=== PATIENT | female | born 1970 | race African-American/Black ===

== ENCOUNTER → 2021-12-11 02:48 | Outpatient (CLI) | payer OTHER, SELFPAY ==
[2021-12-11 12:40] LABS: SARS-CoV-2 RNA PCR Negative
== END ==
PROVIDERS: PCP Family Medicine; Visit Provider Family Medicine
DX: Z20.822 Contact with and (suspected) exposure to COVID-19 (principal)
CPT/HCPCS: C9803; U0003; U0005

== ENCOUNTER 2024-02-15 08:34 | Emergency (ER) | payer OTHER, SELFPAY ==
--- NOTE | ~2024-02-15 | US_ITS ---
EXAMINATION: US venous doppler UE LT DATE: 02/15/2024 09:43 INDICATION: Left upper limb swelling and pain. TECHNIQUE: Grayscale ultrasound images without and with compression and Doppler ultrasound images of the left upper extremity veins were obtained. COMPARISON: None. FINDINGS: The visualized portions of the left internal jugular vein, subclavian vein, axillary vein, brachial v eins, basilic vein, cephalic vein, radial vein, and ulnar vein are patent. IMPRESSION: 1. No deep venous thrombosis. Reviewed, dictated and finalized at location A.
--- NOTE | ~2024-02-15 | XR_ITS ---
EXAMINATION: XR wrist LT min 3V DATE: 02/15/2024 09:11 INDICATION: Left wrist pain and swelling. TECHNIQUE: 4 views of left wrist were obtained. COMPARISON: None. FINDINGS: Bone alignment is normal. No fracture. There is mild osteoarthritis of first carpometacarpa l joint. IMPRESSION: 1. Mild osteoarthritis of first carpometacarpal joint. Reviewed, dictated and finalized at location A.
[2024-02-15 08:36] VITALS: BP 162/99; PULSE 107; RESP 16; TEMP 36.5; O2SAT 100
[2024-02-15] MEDS: KETOROLAC 30 MG/ML VIAL (*BKC) IV PUSH (09:15)
[2024-02-15 09:21] LABS: Basophils Percent Auto 0.2 % (0.2-1.2); Eosinophils Absolute Auto 0.2 K/mm3 (0-0.3); Eosinophils Percent Auto 2.6 % (0-4.4); Hematocrit 42.4 % (37.0-47.0); Hemoglobin 13.6 g/dL (12.0-15.0); Immature Granulocyte Absolute 0.01 K/mm3 (0.00-0.031); Immature Granulocyte Percent A 0.1 % (0-0.5); Lymphocytes Absolute Auto 1.35 K/mm3 (0.9-3.2); Lymphocytes Percent Auto 16.7 % (18.3-44.2); Mean Corpuscular HGB Conc 32.1 g/dl (32-36); Mean Corpuscular Volume 87.2 fl (80-100); Mean Platelet Volume 10.1 fl (7.4-10.4); Monocytes Absolute Auto 0.5 K/mm3 (0.1-0.6); Monocytes Percent Auto 6.1 % (2.6-8.5); Neutrophils Percent Auto 74.3 % (45.5-73.1); Platelet Count Result 267 k/mm3 (150-375); Red Blood Count 4.86 M/mm3 (4.2-5.4); Red Cell Distribution Width 12.4 % (11.5-14.5); White Blood Count 8.1 K/mm3 (4.5-10.0)
[2024-02-15 09:34] LABS: Alanine Aminotransferase 46 U/L (6-35); Albumin Level 4.6 g/dL (3.5-5.1); Alkaline Phosphatase 108 U/L (38-126); Anion Gap 8 mmol/L (4-12); Aspartate Amino Transferase 36 U/L (14-36); Bilirubin,Total 0.7 mg/dL (0.2-1.3); Blood Urea Nitrogen 9 mg/dL (7-17); CRP 5.7 mg/dL (<1.0); Calcium 9.1 mg/dL (8.4-10.2); Carbon Dioxide 27 mmol/L (22-30); Chloride 106 mmol/L (98-107); Estimated CRCL calculation 62 ml/min; Estimated Glomerular Filt Rate > 60; Glucose 123 mg/dL (65-110); Potassium 3.6 mmol/L (3.4-5.0); Sodium 141 mmol/L (137-145)
[2024-02-15 09:43] LABS: INR 1.1; Prothrombin Time 14.6 Seconds (11.1-14.7)
[2024-02-15 09:44] LABS: Partial Thromboplastin Time 39.7 Seconds (22.3-36.8)
[2024-02-15 09:47] LABS: Erythrocyte Sedimentation Rate 101 mm/hr (0-20)
--- NOTE | 2024-02-15 10:11 | ED.UPPEXIN ---
HPI - Extremity Injury (Upper) General Chief Complaint: Extremity Injury, Upper Stated Complaint: L hand swelling Time Seen by Provider: 02/15/24 08:50 History of Present Illness HPI narrative: Patient is a 43-year-old female who presents ER with swelling to her left hand and forearm. Ongoing over last 5 days. Irregularly it is warm. She maintains full range of motion. No numbness or tingling. No fevers or chills or sweats. 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 She does report on her right arm she scraped it on a dumpster and she has a couple pustules in the area but is not cellulitic. She has a small laceration healing by secondary intention. No history of RA/lupus/gout. Last tetanus shot was in 2011. Related Data Home Medications Medication Instructions Recorded Confirmed levonorgestrel 21 mcg/24 hr (up to 1 device intrauterine ONCE 01/11/22 01/23/24 8 years) 52 mg intrauterine device (Mirena) multivitamin 1 tablet PO DAILY 11/19/22 01/23/24 lactase 3,000 unit tablet (Lactaid) 3,000 unit PO ONCE 01/17/23 01/23/24 Allergies Allergy/AdvReac Type Severity Reaction Status Date / Time lactose Allergy Unknown Diarrhea Verified 02/15/24 08:39 CITRUS Allergy Mild RASH Uncoded 02/15/24 08:39 Review of Systems Constitutional: Constitutional: Reports no additional constitutional complaints Cardiovascular: Cardiovascular: Reports no additional cardiovascular complaints Respiratory: Respiratory: Reports no additional respiratory complaints Musculoskeletal: Musculoskeletal: Denies arthralgias, Reports joint swelling and Denies muscle cramps Neurologic: Reports system reviewed and no additional complaints, except as documented [facility] Past Medical History Medical History Eczema Screening mammogram, encounter for Surgical History Surgical History History of gynecological procedure (03/28/20) Mirena IUD insertion History of gynecological procedure 2014 mirena iud insertion History of gynecological procedure Suction D&C Missed AB 2003 Family History Family History Grandparent Diabetes mellitus paternal grandmother Breast cancer paternal grandmother Cerebrovascular accident paternal grandfather Mother Hypertension Breast cancer Diabetes mellitus Dementia Other Alcoholism Hypertension Father Asthma Diabetes mellitus Other Diabetes mellitus Hypertension Social History Social History (Updated 01/23/24 @ 15:32 by Rosalinda Chow [facility]) Smoking status: Never smoker Second hand tobacco smoke exposure: No Alcohol intake: never Substance use: never Substance use type: does not use Do You Feel Safe in your Home?: Yes Lack of Transportation: No Lack of Food: Never True Current Housing: I Have Housing Concerned About Future Housing: No Difficulty Paying Gas/Electric Bills: No Difficulty Paying for Meds: No Currently Unemployed: No Education: Bachelor's Degree Difficulty w/ Childcare or Family Care: No Living arrangements: other Additional living arrangements comments: Occupation/Education: occupation 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 HEAD: Normocephalic, atraumatic. ENT: Mucous membranes moist. CHEST: Clear to auscultation. No respiratory distress. HEART: Regular rate and rhythm. Normal peripheral pulses. ABDOMEN: Soft, nontender, nondistended. EXTREMITIES: Left hand and distal forearm swollen. Increased discomfo
[2024-02-15] MEDS: TETANUS,DIPHTHERIA,AC PERTUSSIS ADULT (0.5 ML) BOOSTRIX IM (10:50)
[2024-02-15 11:07] VITALS: BP 147/91; PULSE 77; RESP 16; O2SAT 100
== END 2024-02-15 11:09 | disposition home or self-care (01) ==
PROVIDERS: Emergency Provider Emergency Medicine
DX: L30.9 Dermatitis, unspecified (principal); G56.02 Carpal tunnel syndrome, left upper limb; M19.042 Primary osteoarthritis, left hand; L73.9 Follicular disorder, unspecified; Z23 Encounter for immunization
CPT/HCPCS: 36415; 73110; 80053; 85025; 85610; 85652; 85730; 86140; 90471; 90715; 93971; 96374; 99284; J1885

== ENCOUNTER 2024-11-06 15:00 | Outpatient (RCR) | payer OTHER, SELFPAY ==
--- NOTE | 2024-08-21 16:17 | OTOPEVAL1 ---
Assessment and note entered by Bobo Mccormick, OTR/L, CHT OT Evaluation Information Assessment Status Evaluation Diagnosis (L) de Quervain's Subjective Information Patient began experiencing pain in the left wrist/ hand in February. She reports the hand swelled and she went to the ED and was diagnosed with tendonitis. She wore a wrist immobilizer from February-Jun with minimal relief. Her PCP recommended a wrist immobilizer that includes the thumb and she has been wearing this since Jun. She reports she can experience 10/10 pain when lifting items, like her purse. She states she has difficulties with everyday tasks and tends to avoid heavy lifting, such as pots and pans. It takes all I have not to drop heavy items . 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 Reported Pain Level Pain Score 5: Self Report Assessment OT Clinical Summary Patient referred to OT with dx of left de Quervain 's tenosynovitis. She presents with a positive Alysia's, pain with wrist and thumb motion, and gross weakness that limits her ability to use her left hand during ADLs and household tasks. Skilled OT indicated to maximize functional use of left hand/wrist via HEP instruction and progression, modalities, manual therapy, and progressive therapeutic exercise. Plan of Care Interventions Therapeutic Exercise,Manual Therapy,Therapeutic Activities,Hot Pack/Cold Pack,Ultrasound,Paraffin OT Services Indicated Yes Treatment Frequency and 2x/week for 8 visits Duration These treatments will address the objective and functional deficits as defined above. The patient will be advanced safely and appropriately in order for the patient to progress towards his/her prior level of function. Additional exercises will be introduced and as well as a comprehensive home exercise program upon discharge, if needed, ?to ensure carryover of functional gains achieved in the clinic. This treatment plan has been reviewed and agreement upon by the patient.
--- NOTE | 2024-08-21 16:17 | OPREHPOC ---
Outpatient Therapy Plan of Care This is a Multidisciplinary Plan of Care that may contain components documented by all disciplines (PT, OT, and ST.) OT Problem 1 OT Problem #1 Knowledge Deficit OT Goal 1 Goal / Goal Update 1. Patient to be independent with instructed materials. Target Visit 8 OT Problem 2 OT Problem #2 Pain OT Goal 1 Goal / Goal Update 1. Patient to report reduced left wrist pain to 3/ 10 or less with ADLs, lifting her purse, and cooking. Target Visit 8 OT Problem 3 OT Problem #3 Impaired Strength OT Goal 1 Goal / Goal Update 1. Patient to progress to left wrist strengthening with 2 lb. free weights x15 reps. 2. 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 Target Visit 8
--- NOTE | 2024-09-27 15:57 | OTOPPROG ---
Assessment and note entered by Bobo Mccormick, OTR/L, CHT OT Progress Report 09/27/24 Diagnosis (L) de Quervain's Subjective Information Patient reports she has made good progress with therapy. She reports experiencing less pain and has been able to use her hand for more tasks. She reports she has progressed to being able to lift pots and pans as well as her purse. A month ago she was experiencing 10/10 pain when lifting her purse. She hasn't worn her wrist brace for a little over a week and reports she hasn't felt like she's needed it. She has not gotten back to crocheting. She reports she continues to experience 3-4/10 pain with lifting her school bag , which she reports is the heaviest thing she lifts. Assessment OT Clinical Summary Patient referred to OT with dx of left de Quervain 's tenosynovitis. Today her Alysia's was negative. She is no longer experiencing pain with ROM and has progressed to light strengthening. She continues to demonstrate gross weakness and residual pain with lifting heavier items such as her school bag. Continued skilled OT indicated to maximize functional use of left hand/wrist via HEP instruction and progression, modalities, manual therapy, and progressive therapeutic exercise. Plan of Care Interventions Therapeutic Exercise,Manual Therapy,Therapeutic Activities,Hot Pack/Cold Pack,Ultrasound,Paraffin OT Services Indicated Yes Treatment Frequency and 1x/week for 4 visits Duration These treatments will address the objective and functional deficits as defined above. The patient will be advanced safely and appropriately in order for the patient to progress towards his/her prior level of function. Additional exercises will be introduced and as well as a comprehensive home exercise program upon discharge, if needed, ?to ensure carryover of functional gains achieved in the clinic. This treatment plan has been reviewed and agreement upon by the patient.
--- NOTE | 2024-09-27 15:58 | OPREHPOC ---
Outpatient Therapy Plan of Care This is a Multidisciplinary Plan of Care that may contain components documented by all disciplines (PT, OT, and ST.) OT Problem 1 OT Problem #1 Knowledge Deficit OT Goal 1 Goal / Goal Update 1. Patient to be independent with instructed materials. ---OT POC UPDATE 09/27/24--- 1. met, continue as HEP is progressed Target Visit 8 OT Problem 2 OT Problem #2 Pain OT Goal 1 Goal / Goal Update 1. Patient to report reduced left wrist pain to 3/ 10 or less with ADLs, lifting her purse, and cooking. ---OT POC UPDATE 09/27/24--- 1. progressed to 4/10 at worst with lifting purse, system technologist tasks are 1-3/10, continue goal Target Visit 8 OT Problem 3 OT Problem #3 Impaired Strength OT Goal 1 Goal / Goal Update 1. Patient to progress to left wrist strengthening with 2 lb. free weights x15 reps. 2. Patient to progress to left asset recovery specialist strengthening with yellow putty x5 minutes without pain. ---OT POC UPDATE 09/27/24--- 1. Met 2. Met, upgrade goal: Increase left asset recovery specialist strength to 20 lbs. Target Visit 8
--- NOTE | 2024-11-06 15:41 | OTOPDC ---
Assessment and note entered by Bobo Mccormick, OTR/L, CHT OT D/C 11/06/24 Diagnosis (L) de Quervain's Subjective Information Patient reports she is doing well, she has progressed to 0/10 with lifting her purse and carrying her computer bag with the left hand. She is back to crocheting without pain. She is no longer having pain with lifting her school bag, but she does have to lift it with 2 hands. Reported Pain Level Pain Score 0: Self Report Assessment OT Clinical Summary Patient referred to OT with dx of left de Quervain 's tenosynovitis. Patient has made excellent functional progress, now reporting no pain with lifting her bags or ADLs. Wrist strength is WNL and symmetrical. Negative Alysia's. Left glass cutter hand strength improved from 10 to 29 lbs. D/C today with goals met.
== END 2024-11-07 11:58 | disposition home or self-care (01) ==
LOC: ANHGOSHOT 15:00
PROVIDERS: PCP Family Medicine; Visit Provider Family Medicine
DX: M65.4 Radial styloid tenosynovitis [de Quervain] (principal)
CPT/HCPCS: 97018; 97035; 97110; 97140; 97165

== ENCOUNTER 2025-05-03 15:27 | Outpatient (CLI) | payer OTHER, SELFPAY ==
--- NOTE | ~2025-05-03 | MM_ITS ---
EXAMINATION: MM screening jose armando BI w mikel HISTORY: Screening TECHNIQUE: Craniocaudal and mediolateral oblique 3-D tomosynthesis images were obtained and synthetic 2-D images were generated. CAD analysis was submitted and interpreted. COMPARISON: No prior mammogram is available for comparison at this institution. BREAST PARENCHYMAL COMPOSITION: Not dense: There are scattered areas of fibroglandular density. FINDINGS: There is no evidence of suspicious mass, calcification, or architectural distortion to suggest malignancy in either breast. There has been no suspicious interval change. IMPRESSION: 1. No mammographic evidence of malignancy. 2. Recommend routine screening mammography in one year. BI-RADS Category 1: Negative Reviewed, dictated and finalized at location O.
--- OUTSIDE RECORDS SUMMARY | 2025-05-03 15:48 | XMS_ITS | Clinical Summary ---
Author Organization [facility] Address [address] [place] [address] Care Team Providers Care Head Of Research & Insights Name Role Phone Unavailable Primary Care Provider Unavailabl e Source Comments [facility],non-owned Affiliates and Associated Physician Practices is amultiple site organization consisting of ambulatory clinics and hospital sitesin [place], [place], [place] and [place]. This disclosure is being madepursuant to the Care Everywhere program and may not contain all information available regarding this patient. Last updated 18.[facility] [employer] Social History Tobacco Use Types Packs/Day Years Used Date Smoking Tobacco: Never Assessed Comments Unknown Sex and Gender Information Value Date Recorded Sex Assigned at Not on file Legal Sex Female 11:10 AM CDT Gender Identity Not on file Sexual Orientation Not on file Plan of Treatment Health Maintenance Due Date Last Done Comments COLOGUARD (AGES 45-75) - COL ON CA SCREENING 1972 COLON MONITORING 1972 COLONOSCOPY - COLON CA SCREENING 1972 CT COLONOGRAPHY - COLON CA SCREENING 1972 Colorectal Cancer Screening 1972 FIT - COLON CA SCREENING 1972 FLEX SIG - COLON CA SCREENING 1972 LIPID TESTING 1972 MAMMOGRAM 1972 HIV SCREENING 1987 HEPATITIS C SCREENING 05/09/1990 DTAP/TDAP/TD VACCINES (1 - Tdap) 1991 HEPATITIS B VACCINE (1 of 3 - 19+ 3-dose series) 1991 PNEUMOCOCCAL VACCINE 50+ (1 of 1 - PCV) 2022 ZOSTER VACCINE (1 of 2) 2022 COVID-19 VACCINE ( - 2023-2 5 season) 2024 DEPRESSION SCREENING 09/12/2024 INFLUENZA VACCINE (#1) 2025 HIB VACCINE Aged Out No longer eligi ble based on patient's age to complete this topic HPV VACCINE Aged Out No longer eligi ble based on patient's age to complete this topic MENINGOCOCCAL (Group B) VACC INE SHARED DECISION-MAKING Aged Out No longer eligibl e based on patient's age to complete this topic MENINGOCOCCAL GROUPS A/C/Y/W VACCINE Aged Out No longer eligible b ased on patient's age to complete this topic Insurance [employer]
--- OUTSIDE RECORDS SUMMARY | 2025-05-03 15:48 | XMS_ITS | Clinical Summary ---
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 Name Role Phone Ailin Velazquez MD Primary Care Provider + Allergies No known active allergies Medications No known medications Active Problems No known active problems Immunizations Immunization Administration Dates Next Due Flucelvax Influenza Quad MDI 07/25/2012 Influenza, Quadrivalent, Spl it, Intramuscular 09/13/2018,07/06/2016 Influenza, Quadrivalent, Spl it, Preservative Free, Intramuscular 07/26/2022,07/31/2019,09/15/2018 Influenza, Trivalent, IM (MDV) 07/06/2013 Influenza, Trivalent, Preser vative Free, Intramuscular 06/07/2017 Rho (D) Immune Globulin, IV or IM 01/09/2015 Sars-CoV-2, Unspecified 11/01/2020 Tdap 01/23/2025,01/05/2015 Social History Tobacco Use Types Packs/Day Years Used Date Smoking Tobacco: Never Assessed Comments Unknown Sex and Gender Information Value Date Recorded Sex Assigned at Not on file Legal Sex Female 7:53 PM CDT Gender Identity Not on file Sexual Orientation Not on file Last Filed Vital Signs Vital Sign Reading Time Taken Comments Blood Pressure 156/94 01/23/2025 5:47 PM CDT Pulse 71 01/23/2025 5:47 PM CDT Temperature 36.4 C (97.5 F) 01/23/2025 5:47 PM CDT Respiratory Rate 17 01/23/2025 5:47 PM CDT Oxygen Saturation 98% 02/15/2024 8:10 AM CDT Inhaled Oxygen Concentration - - Weight 67.6 kg (149 lb) 01/23/2025 5:47 PM CDT Height 152.4 cm (5') 01/23/2025 5:47 PM CDT Body Mass Index 29.1 01/23/2025 5:47 PM CDT Plan of Treatment Health Maintenance Due Date Last Done Comments Cervical Cancer Screening 1972 Colon Cancer Screening-Colonoscopy 1972 Depression Screening 1972 Hepatitis C Screening 1972 Hepatitis B Screening 1990 Regular Well Visit/Exam 18-64 1990 Zoster Vaccine (1 of 2) 2022 Breast Cancer Screening-Mammogram 03/21/2024 03/21/2023 Covid-19 Vaccine ( season) 2024 06/17/2022, 08/27/2021, 11/29/2020, Additional history exists Influenza Vaccine (#1) 2025 , 07/31/2019, 09/15/2018, Additional history exists DTaP/Tdap/Td Vaccine (3 - Td or Tdap) 01/23/2035 01/23/2025, 01/05/2015 Pneumococcal vaccine <65 Aged Out No longer eligible based on patient's age to complete this topic Insurance Care Teams Cooling Tower Operator Relationship Specialty Start Date End Date Ailin Velazquez MD [address] [place] [address] [place] [phone] PCP - General Family Medicine 01/23/25
== END 2025-05-03 15:28 | disposition home or self-care (01) ==
LOC: ANHFOHIMG 15:46
PROVIDERS: PCP Family Medicine; Visit Provider Family Medicine
DX: Z12.31 Encounter for screening mammogram for malignant neoplasm of breast (principal)
CPT/HCPCS: 77063; 77067